=== PATIENT | female | born 1940 | race Caucasian/White ===

== ENCOUNTER → 2022-05-29 10:26 | Outpatient (BNVA) | payer MEDICARE, SELFPAY | PROVIDERS: Referring Provider Internal Medicine; Visit Provider Specialist | DX: G40.309 Generalized idiopathic epilepsy and epileptic syndromes, not intractable, without status epilepticus (principal); Z86.73 Personal history of transient ischemic attack (TIA), and cerebral infarction without residual deficits; M25.361 Other instability, right knee; R26.89 Other abnormalities of gait and mobility | CPT/HCPCS: 99205 ==

== ENCOUNTER 2022-07-13 11:22 | Outpatient (CLI) | payer MEDICARE, SELFPAY ==
--- NOTE | 2022-07-13 12:30 | CT_ITS ---
WS: [id number] CT HEAD TECHNIQUE: Noncontrast CT of the head obtained from the skullbase to the vertex pre-CTa. CLINICAL INFORMATION: G45.9 - Transient cerebral ischemic attack, unspecified COMPARISON: None. DLP: 194.[address] scans at [facility] use at least one of these dose optimization techniques: automated e xposure control; mA and/or kV adjustment per patient size (includes targeted exams where dose is matc hed to clinical indication); or iterative reconstruction. FINDINGS: No evidence of intracranial hemorrhage or mass effect. Ventricular system and basal cisterns are sun nt. Moderate to advanced small vessel changes with moderate parenchymal volume loss. Chronic lacunar infarcts in the basal ganglia. Vascular calcification. No extra-axial fluid collections. No evidence of mass or mass effect. Retention cyst RIGHT maxillary sinus. Mastoid air cells are well aerated. Normal posterior nasopharyn x.. CT/CT head wo con* [id number] IMPRESSION: 1. No evidence of intracranial hemorrhage or mass effect. 2. Moderate to advanced small vessel changes with moderate parenchymal volume loss. 3. Chronic lacunar infarcts in the basal ganglia. 4. Vascular calcification. 5. No acute intracranial findings. *IV contrast injection for CTA infiltrated. Approximately 95 cc infiltrated. Pa tient provided instructions regarding elevation and cold compresses. Patient in structed to return to ER if persistent redness or skin breakdown. CTA was not p erformed. Patient to return 07/23 for CTA head neck
[2022-07-13 12:51] LABS: Blood Urea Nitrogen 20 mg/dL (8-23)
== END 2022-07-13 11:23 | disposition home or self-care (01) ==
LOC: RAD 11:30
PROVIDERS: PCP Internal Medicine; Visit Provider Specialist
DX: G45.9 Transient cerebral ischemic attack, unspecified (principal); I63.9 Cerebral infarction, unspecified; G40.309 Generalized idiopathic epilepsy and epileptic syndromes, not intractable, without status epilepticus; I63.81 Other cerebral infarction due to occlusion or stenosis of small artery
CPT/HCPCS: 36415; 70450; 82565; 84520

== ENCOUNTER 2022-07-23 10:48 | Outpatient (CLI) | payer MEDICARE, SELFPAY ==
--- NOTE | 2022-07-23 11:31 | CT_ITS ---
WS: [id number] CTA HEAD AND NECK TECHNIQUE: Contrast enhanced CTA of the head and neck with coronal and sagittal reformatted images an d maximum intensity projection (MIP) images. NASCET criteria utilized. CLINICAL INFORMATION: G40.909 - Epilepsy, unspecified, not intractable, without... COMPARISON: None. DLP: 1104.[address] scans at [facility] use at least one of these dose optimization techniques: automated e xposure control; mA and/or kV adjustment per patient size (includes targeted exams where dose is matc hed to clinical indication); or iterative reconstruction. FINDINGS: Moderate small vessel changes. Moderate parenchymal volume loss. Chronic lacunar infarcts i n the RIGHT greater than LEFT basal ganglia. Vascular calcification. Paranasal sinuses and mastoid ai r cells well aerated. Normal posterior nasopharynx. LEFT thyroid nodule measuring 11 mm. RIGHT: RIGHT common carotid artery is patent. Tortuous RIGHT common carotid artery origin. Slight ret ropharyngeal course RIGHT cervical ICA. No significant RIGHT ICA stenosis. RIGHT ICA is patent to the skull base. LEFT: LEFT common carotid artery is patent and tortuous. Tortuous LEFT internal carotid artery. No si gnificant LEFT ICA stenosis. LEFT ICA is patent to the skull base. INTRACRANIAL CTA: Codominant vertebral arteries are patent. Tortuous vertebral artery origins. The vertebral arteries a re patent to the basilar junction. Normal vascularity to the [employer] territory bilaterally. Both ICAs are patent at the skull base. Cavernous carotid calcification. Normal vascularity to the AC A and MCA territories bilaterally. No proximal flow limiting stenosis. Dental artifact degrades images at the tongue base and upper neck. Small retention cyst RIGHT maxilla ry sinus. Mastoid air cells well aerated. Normal posterior nasopharynx. No cervical lymphadenopathy. Moderate spondylitic changes cervical spine CT/CT angio headneck* [id number] IMPRESSION: 1. No evidence of intracranial hemorrhage or mass effect. 2. Moderate small vessel changes with moderate parenchymal volume loss. Chroni c lacunar infarcts in the RIGHT greater than LEFT basal ganglia. 3. No flow-limiting intracranial stenosis. 4. Tortuous common carotid arteries bilaterally. Patent cervical ICAs bilatera lly. No significant stenosis. 5. Both vertebral arteries are patent.
[2022-07-23] MEDS: iohexol 350 mg/mL 500 mL Btl (per mL) IV (11:33)
--- NOTE | 2022-07-23 11:45 | USCV_ITS ---
Toni Carr Age: 82 Gender: F : 1940 Exam Date: 07/23/2022 11:25 Ordering Phys: Mikala Henning MD Technologist: Exam Location: [facility] [place]: chest pain BP: 113 / 70 HR: 68 Rhythm: Sinus Technical Quality: Adequate MEASUREMENTS (Male / Female) Normal Values 2D ECHO LV Diastolic Diameter PLAX 4.5 cm 4.2 - 5.9 / 3.9 - 5.3 cm LV Systolic Diameter PLAX 3.3 cm IVS Diastolic Thickness 1.1 cm 0.6 - 1.0 / 0.6 - 0.9 cm IVS Systolic Thickness 1.3 cm LVPW Diastolic Thickness 1.1 cm 0.6 - 1.0 / 0.6 - 0.9 cm LVPW Systolic Thickness 1.4 cm LVOT Diameter 2.0 cm LV Ejection Fraction 2D Teich 53.9 % LV Ejection Fraction MOD 2C 69.1 % LV Ejection Fraction 2C AL 68.4 % LA Diameter 3.3 cm IVC Diameter 1.6 cm M-MODE Aortic Annulus Diameter 3.0 cm LA Ao Ratio MM 1.2 MV E Point Septal Separation 0.6 cm DOPPLER AV Peak Velocity 111.0 cm/s LVOT Peak Velocity 105.0 cm/s AV Area Cont Eq vti 3.4 cm squared AV Area Cont Eq pk 2.9 cm squared MV Area PHT 2.5 cm squared Mitral E to A Ratio 0.5 MV E' Velocity 32.0 cm/s Mitral E to MV E' Ratio 6.6 Mitral E to LV E' Lateral Ratio 5.7 Mitral E to LV E' Septal Ratio 8.1 TR Peak Velocity 281.7 cm/s TR Peak Gradient 31.7 mmHg TV Peak E Velocity 109.0 cm/s Right Atrial Pressure 3.0 mmHg Pulmonary Artery Systolic Pressu 34.7 mmHg RV Acceleration Time 0.2 s FINDINGS Left Ventricle Left ventricle is normal size. LV systolic function is normal with EF of 60 to 65%. No regional wall motion abnormalities are seen. Grade 1 diastolic dysfunction Right Ventricle Normal in size and function. Right Atrium Normal in size Left Atrium Normal in size Mitral Valve Structurally normal mitral valve. Trace mitral regurgitation. Aortic Valve Structurally normal mitral valve. No significant stenosis or regurgitaiton. Tricuspid Valve Mild tricuspid regurgitation. RVSP is 35 to 40 mmHg. This is consistent with mild pulmonary hypertension. Pulmonic Valve Not well-visualized. Mild pulmonic regurgitation Pericardium Normal Aorta Normal in size IVC Appears to be normal CONCLUSIONS LV systolic function is normal with EF of 60-65% Grade 1 diastolic dysfunction Trace mitral regurgitation Mild tricuspid regurgitation Mild pulmonary hypertension Mild pulmonic regurgitation No comparison studies are available Gunnre Bartlett MD (Electronically Signed) Final Date: 02 August 2022 12:44 S
== END 2022-07-23 10:49 | disposition home or self-care (01) ==
PROVIDERS: PCP Internal Medicine; Visit Provider Specialist
DX: G40.909 Epilepsy, unspecified, not intractable, without status epilepticus (principal); G45.9 Transient cerebral ischemic attack, unspecified; I63.9 Cerebral infarction, unspecified; I08.1 Rheumatic disorders of both mitral and tricuspid valves; I27.20 Pulmonary hypertension, unspecified
CPT/HCPCS: 70496; 70498; 93306; Q9967